=== PATIENT | female | born 1985 | race American Indian/Alaskan Native ===

== ENCOUNTER 2021-08-24 08:42 | Emergency (ER) | payer SELFPAY ==
[2021-08-24 09:01] VITALS: BP 113/73
[2021-08-24] MEDS ORDERED: LIDOCAINE-MPF (1%) 10 MG/1 ML VIAL 5 ML INFILTRATI ONE (09:05)
--- NOTE | 2021-08-24 09:10 | Emergency Department Report ---
ED Female HPI - General Chief complaint: Urogenital-Female Stated complaint: POSS YEAST INFECTION Time Seen by Provider: 08/24/21 09:05 Source: patient Mode of arrival: Ambulatory Limitations: No Limitations - History of Present Illness Initial comments: The patient was evaluated in the emergency department for symptoms described in the history of present illness. He/she was evaluated in the context of the global COVID-19 pandemic, which necessitated consideration that the patient might be at risk for infection with the virus that causes COVID-19. Institutional protocols and algorithms that pertain to the evaluation of patients at risk for COVID-19 are in a state of rapid change based on information released by regulatory bodies including the CDC and federal and state organizations. These policies and algorithms were followed during the patient's care in the emergency department. Please note that these policies, procedures and recommendations changed on a rapid basis. 36-year-old -[place] female presents to the emergency room for vaginal discharge for 2 days. Patient denies any pelvic pain no nausea no vomiting fever chills no dysuria. She thinks is a yeast infection but not sure. She does admit to unprotected intercourse. Possible concern for STD. Last menstrual period was 2021-08-14 Complaint: vaginal discharge Onset/Timin -: days(s) Severity scale (0 -10): 1 Consistency: constant Improves with: none Are you Now?: No Last Menstrual Period: 08/14/21 EDC: 05/21/22 Associated Symptoms: denies other symptoms - Related Data Sexually active: Yes (Unprotected intercourse) Previous Rx's Medication Instructions Recorded Last Taken Type Acetaminophen/Codeine [Tylenol #3] 1 tab PO Q6H PRN #25 tab 04/14/15 Unknown Rx Ibuprofen [Motrin] 600 mg PO Q8H PRN #50 tablet 04/14/15 Unknown Rx Doxycycline Hyclate [Doxycycline 100 mg PO Q12HR 7 Days #14 tab 08/24/21 Unknown Rx Hyclate TAB] Terconazole [Terazol 7] 1 applic VG QHS 7 Days #7 08/24/21 Unknown Rx cream.[email or web address] Allergies Allergy/AdvReac Type Severity Reaction Status Date / Time No Known Allergies Allergy Verified 04/14/15 01:41 ED Review of Systems ROS: Stated complaint: POSS YEAST INFECTION Other details as noted in HPI Comment: All other systems reviewed and negative ED Past Medical Hx - Past Medical History Hx Headaches / Migraines: Yes - Surgical History Additional Surgical History: L knee surgery-torn ACL - Social History Smoking Status: Never Smoker Substance Use Type: None - Medications Home Medications: Home Medications Medication Instructions Recorded Confirmed Last Taken Type Acetaminophen/Codeine [Tylenol #3] 1 tab PO Q6H PRN #25 tab 04/14/15 Unknown Rx Ibuprofen [Motrin] 600 mg PO Q8H PRN #50 tablet 04/14/15 Unknown Rx Doxycycline Hyclate [Doxycycline 100 mg PO Q12HR 7 Days #14 tab 08/24/21 Unknown Rx Hyclate TAB] Terconazole [Terazol 7] 1 applic VG QHS 7 Days #7 08/24/21 Unknown Rx cream.[email or web address] ED Physical Exam - General Limitations: No Limitations General appearance: alert, in no apparent distress - Head Head exam: Present: atraumatic, normocephalic - Eye Eye exam: Present: normal appearance - ENT ENT exam: Present: normal external ear exam - Respiratory Respiratory exam: Absent: respiratory distress, accessory muscle use - Cardiovascular Cardiovascular Exam: Present: regular rate - Back Exam Back exam: Present: normal inspection - Neurological Exam Neurological exam: Present: alert, oriented X3, normal gait - Psychiatric Psychiatric exam: Present: normal affect, normal mood - Skin Skin exam: Present: warm, dry, intact, normal color. Absent: rash ED Course Vital Signs 08/24/21 09:00 Temperature 98.6 F Pulse Rate 81 Respiratory 18 Rate Blood Pressure 113/73 [Right] O2 Sat by Pulse 98 Oximetry ED Medical Decision Making - Medical Decision Making 36-year-old -[place] female presents to the emergency room for vaginal discharge for 2 days. Patient denies any pelvic pain no nausea no vomiting fever chills no dysuria. She thinks is a yeast infection but not sure. She does admit to unprotected intercourse. Possible concern for STD. Last menstrual period was 2021-08-14 Patient given Rocephin 1 g IM. Discharged on doxycycline and Terazol 7. Critical care attestation.: If time is entered above; I have spent that time in minutes in the direct care of this critically ill patient, excluding procedure time. ED Disposition Clinical Impression: Vaginitis, Concern about STD in female without diagnosis Disposition: HOME / SELF CARE / HOMELESS Is pt being admited?: No Does the pt Need Aspirin: No Condition: Stable Instructions: Vaginitis, [id number] Additional Instructions: Recommend to follow-up with health department or your primary care provider for a full STD evaluation. Refrain from intercourse for the next 2 weeks until your partner has been tested and treated. Prescriptions: Terconazole [Terazol 7] 1 applic VG QHS 7 Days #7 cream.[email or web address] Doxycycline Hyclate [Doxycycline Hyclate TAB] 100 mg PO Q12HR 7 Days #14 tab Referrals: [facility] [Outside] - 3-5 Days [facility] [Outside] - 3-5 Days Time of Disposition: 09:11
== END 2021-08-24 09:46 | disposition home or self-care (01) ==
LOC: ED 08:42
DX: N76.0 Acute vaginitis (principal); Z20.2 Contact with and (suspected) exposure to infections with a predominantly sexual mode of transmission
CPT/HCPCS: 96372; 99282; J0696